=== PATIENT | female | born 1945 | race Caucasian/White ===

== ENCOUNTER → 2020-10-08 | Outpatient (CLI) | payer MEDICARE ==
--- NOTE | 2020-10-08 16:23 | KCIC ---
EXAM: XR PELVIS 1-2V, XR HAND 2 VIEWS, XR EXAM OF ANKLE 2V, XR KNEE_AP BILAT STANDING 10/08/2020 9:55 AM CLINICAL INDICATION: Evaluate for rheumatoid arthritis COMPARISON: None\ FINDINGS: Knees: Single standing bilateral view obtained. There are bilateral knee prostheses. No acute fractur e or malalignment. Pelvis: AP view of the pelvis obtained. There is moderate right greater than left hip joint space angela rowing. There are subchondral cysts and subchondral sclerosis with small osteophytes at the right hip . Osteitis pubis noted. Sacroiliac joints are normal. There is lower lumbar degenerative disc disease . Ankles: AP and lateral view of the right left ankle were obtained. No acute fracture. Alignment is no rmal. Tibiotalar joint spaces are maintained. There are no erosions. There are mild degenerative hemphill ges of the midfoot with small dorsal osteophytes seen bilaterally. No definite joint effusion or soft tissue abnormality. Hands: PA view of the right and left hand. No acute fracture. There has been probable prior resection of right distal ulna. No other definite erosions. There is multifocal degenerative joint disease wit h joint space narrowing, subchondral cysts and sclerosis, and osteophytes seen bilaterally. This is s evere at the first CMC joints, severe at the thumb IP joints, and severe at the left distal radioulna r joint. Moderate to severe at the triscaphe the joint and moderate the remaining interphalangeal lynsey nts. There are cystic changes in the right distal scaphoid. There is also moderate joint space narrow ing of the second and third MCP joints, greatest at the right MTP joint. No soft tissue abnormality. IMPRESSION: 1. No evidence of rheumatoid arthritis in the knees, pelvis, ankles, hands. 2. 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 3. Probable prior resection of the right distal ulna. 4. Bilateral knee prostheses. 5. Moderate degenerative joint disease of the hips, and mild degenerative joint disease of the midfoo t laterally. Electronically signed by: Mallory Renteria MD (10/08/2020 4:20 PM) [id number]
== END ==
LOC: KCIC 09:47
PROVIDERS: ATTEND Physician Assistant
DX: M16.0 Bilateral primary osteoarthritis of hip (principal); M19.042 Primary osteoarthritis, left hand; M19.041 Primary osteoarthritis, right hand; M19.031 Primary osteoarthritis, right wrist; M19.032 Primary osteoarthritis, left wrist; M19.072 Primary osteoarthritis, left ankle and foot; M19.071 Primary osteoarthritis, right ankle and foot; M06.4 Inflammatory polyarthropathy; M51.36 Other intervertebral disc degeneration, lumbar region; M18.12 Unilateral primary osteoarthritis of first carpometacarpal joint, left hand; M18.11 Unilateral primary osteoarthritis of first carpometacarpal joint, right hand; M25.761 Osteophyte, right knee; M86.8X8 Other osteomyelitis, other site; M54.2 Cervicalgia; Z96.653 Presence of artificial knee joint, bilateral
CPT/HCPCS: 72170; 73565; 73600; 73120-50

== ENCOUNTER → 2020-11-07 | Outpatient (CLI) | payer MEDICARE ==
--- NOTE | 2020-11-07 14:46 | KCIC ---
Exam Date: 11/07/2020 9:15 AM MRI RIGHT UPPER EXTREMITY JOINT WITHOUT CONTRAST Indication: Reason: RIGHT WRIST TENOSYNOVITIS / Spl. Instructions: / History: Surgery in August for in flammation. Residual area of swelling in right wrist.. TECHNIQUE: Routine multiplanar MR imaging of the right wrist was performed without intravenous contra st. COMPARISON: Radiographs from October 08, 2020 FINDINGS: Again seen are postoperative changes with resection of the distal ulna. There is a 2.0 x 1.5 x 2.3 c m heterogeneous collection at the operative site which is nonspecific. Prominent adjacent soft tissu e edema is nonspecific. There is marrow edema involving the distal ulnar stump with mild abnormal corresponding T1 marrow sig nal. This could be postoperative, reactive, or could represent acute osteomyelitis. Mild to moderate degenerative changes are seen in the wrist. Visualized osseous structures otherwise demonstrate normal marrow signal without evidence for acute fracture. The central and dorsal components of the scapholunate ligament are not well visualized and likely tor n. The volar component is likely intact. Lunotriquetral ligament appears intact. Flexor tendons and carpal tunnel are within normal limits. Visualized extensor tendons are within no rmal limits. IMPRESSION: Postoperative changes with resection of the distal ulna are again seen. 2 cm heterogeneous collectio n at the operative site is nonspecific but could represent abscess, seroma, hematoma, or tenosynoviti s involving the remaining fourth and fifth extensor tendons. Prominent soft tissue edema could repre sent cellulitis. Abnormal marrow signal involving the distal ulnar stump could be postoperative or represent early esthela nges of acute osteomyelitis. Electronically signed by: Soto Sheth MD (11/07/2020 2:44 PM) [facility]
== END ==
LOC: KCIC MRI 07:47
PROVIDERS: ATTEND Orthopaedic Surgery Hand Surgery
DX: M65.88 Other synovitis and tenosynovitis, other site (principal); Z98.890 Other specified postprocedural states
CPT/HCPCS: 73221

== ENCOUNTER → 2020-11-07 | Outpatient (CLI) | payer MEDICARE ==
--- NOTE | 2020-11-07 08:27 | KCIC ---
Right breast ultrasound: Reason for examination: Lump and tenderness. History of breast cancer with bilateral mastectomies and implant reconstruction. Ultrasound examination of the reconstructed right breast and axilla was performed. No focal abnormality seen in the area of concern at the 9:00 position 11 cm from the nipple. No abnor mal fluid is seen around the implants and the breast implant appears to be intact. No abnormal appear ing lymph nodes are seen in the axilla. IMPRESSION: No abnormality seen in the reconstructed right breast. Recommend clinical follow-up. BI-RADS Category 1: Negative. "Our facility is accredited by the [employer] Mammography [employer]." This patient's information has been entered into a reminder system for the patient to be notified wit h the results of her examination and a target date for the next mammogram. Electronically signed by: Pam Mondragon MD (11/07/2020 8:25 AM) [id number]
== END ==
LOC: KCIC US 12:30
PROVIDERS: ATTEND Family Medicine
DX: N63.11 Unspecified lump in the right breast, upper outer quadrant (principal); Z85.3 Personal history of malignant neoplasm of breast; Z90.13 Acquired absence of bilateral breasts and nipples
CPT/HCPCS: 76641